=== PATIENT | male | born 1960 | race Asian ===

== ENCOUNTER 2023-08-20 16:21 | Inpatient (IN) | payer BC, OTHER ==
[2023-08-20 16:52] VITALS: BMI 57.6
[2023-08-20] MEDS ORDERED: SODIUM CHLORIDE 0.9% 500 ML INFUS.BAG IV ONE (17:39)
[2023-08-20] MEDS ORDERED: CEFTRIAXONE 1,000 MG in DEXTROSE 5%-WATER - 50 ML IVPB ONE (17:39)
[2023-08-20] MEDS ORDERED: CEFTRIAXONE 1 GM/50 ML BAG ONE (17:55)
[2023-08-20 18:03] LABS: HEMATOCRIT 40.7 % (35.4-49); HEMOGLOBIN 13.2 GM/dL (11.7-16.9); MCH 28.3 pg (25.7-33.7); MCHC 32.4 g/dl (32.0-35.9); MEAN CELL VOLUME 87.2 fl (80-96); MEAN PLT VOLUME 8.4 fl (7.5-11.1); PLATELET COUNT 421 10^3/uL (134-434); RBC 4.67 M/mm3 (4.00-5.60); RDW 13.8 % (11.9-15.9); WHITE BLOOD COUNT 22.1 K/mm3 (4.0-10.0)
[2023-08-20 18:08] LABS: INR 1.38 (0.83-1.09); PROTHROMBIN TIME (PATIENT) 15.9 SEC (9.7-13.0)
[2023-08-20 18:11] LABS: ACTIVATED PTT 32.3 SECONDS (25.2-36.5)
[2023-08-20 18:20] LABS: POTASSIUM 3.5 mmol/L (3.5-5.1)
[2023-08-20 18:22] LABS: CALCIUM 8.3 mg/dL (8.5-10.1)
[2023-08-20 18:23] LABS: BLOOD UREA NITROGEN 20.4 mg/dL (7-18)
[2023-08-20 18:26] LABS: CREATININE 1.2 mg/dL (0.55-1.3)
[2023-08-20 18:27] LABS: BILIRUBIN,TOTAL 0.8 mg/dL (0.2-1); TOT PROT 7.3 g/dl (6.4-8.2)
[2023-08-20 18:49] LABS: ANISOCYTOSIS 1+; MACROCYTOSIS 0
[2023-08-20] MEDS ORDERED: VANCOMYCIN PREMIX 1.75 GM 1,750 MG/350 ML PIGGYBACK IVPB ONE (20:44)
[2023-08-20] MEDS ORDERED: VANCOMYCIN 500 MG VIAL (RESTRICTED TO ID ONLY) ONE (20:48)
[2023-08-20] MEDS ORDERED: SENNOSIDES 8.6MG TABLET (FP) PO PRN (21:57)
[2023-08-20] MEDS ORDERED: DOCUSATE SODIUM 100 MG CAPSULE (FP) PO PRN (21:57)
[2023-08-20] MEDS: SODIUM CHLORIDE 1,000 ML IV SCH (23:21)
[2023-08-21] MEDS ORDERED: predniSONE 10 MG TABLET (UD) PO ONE (00:13)
[2023-08-21] MEDS ORDERED: predniSONE 10 MG TABLET (UD) ONE (01:03)
[2023-08-21] MEDS ORDERED: CLINDAMYCIN 600MG PREMIX IVPB 600 MG/50 ML BAG IVPB ONE (01:05)
[2023-08-21] MEDS ORDERED: ALBUTEROL SO4 HFA INHALER IH ONE (01:06)
[2023-08-21] MEDS: ALBUTEROL SO4 HFA INHALER IH SCH ×6 (01:18→21:08)
[2023-08-21] MEDS ORDERED: CLINDAMYCIN 600MG PREMIX IVPB 600 MG/50 ML BAG IVPB SCH (02:00)
[2023-08-21] MEDS ORDERED: LEVOTHYROXINE NA 75 MCG TABLET (FP) ONE (06:18)
[2023-08-21] MEDS: LEVOTHYROXINE NA 75 MCG TABLET (FP) PO SCH (06:20)
[2023-08-21 06:39] LABS: HEMATOCRIT 34.1 % (35.4-49); HEMOGLOBIN 11.1 GM/dL (11.7-16.9); MCH 28.5 pg (25.7-33.7); MCHC 32.7 g/dl (32.0-35.9); MEAN CELL VOLUME 87.3 fl (80-96); MEAN PLT VOLUME 7.7 fl (7.5-11.1); PLATELET COUNT 289 10^3/uL (134-434); RDW 13.7 % (11.9-15.9); WHITE BLOOD COUNT 19.4 K/mm3 (4.0-10.0)
[2023-08-21 06:48] LABS: INR 1.51 (0.83-1.09); PROTHROMBIN TIME (PATIENT) 17.4 SEC (9.7-13.0)
[2023-08-21 06:51] LABS: ACTIVATED PTT 29.2 SECONDS (25.2-36.5)
[2023-08-21] MEDS: INSULIN ASPART SLIDING SCALE (NOVOLOG) 1 VIAL SQ SCH ×3 (06:51→16:26)
[2023-08-21 06:56] LABS: POTASSIUM 3.6 mmol/L (3.5-5.1)
[2023-08-21 07:01] LABS: CALCIUM 7.7 mg/dL (8.5-10.1)
[2023-08-21 07:04] LABS: CREATININE 0.9 mg/dL (0.55-1.3)
[2023-08-21 07:06] LABS: BILIRUBIN,TOTAL 0.6 mg/dL (0.2-1); TOT PROT 5.6 g/dl (6.4-8.2)
[2023-08-21 07:12] LABS: ALBUMIN 2.2 g/dl (3.4-5.0)
[2023-08-21] MEDS ORDERED: ACETAMINOPHEN 1000 MG/100 ML BAG IVPB PRN (08:25)
[2023-08-21] MEDS: LOSARTAN POTASSIUM 50 MG TABLET PO SCH (09:34)
[2023-08-21] MEDS: FENOFIBRIC ACID 135 MG CAP PO SCH (09:34)
[2023-08-21] MEDS: NEBIVOLOL 2.5 MG TABLET (FP) PO SCH (10:53)
[2023-08-21 12:26] LABS: URINE APPEARANCE CLEAR; URINE BILIRUBIN NEGATIVE (NEGATIVE); URINE COLOR YELLOW; URINE GLUCOSE (UA) NEGATIVE (NEGATIVE); URINE KETONE NEGATIVE (NEGATIVE); URINE LEUK ESTERASE NEGATIVE (NEGATIVE); URINE NITRITE NEGATIVE (NEGATIVE); URINE PROTEIN TRACE (NEGATIVE)
[2023-08-21] MEDS: PIPERACILLIN/TAZOB 4.5 GM 4.5 GM in DEXTROSE 5%-WATER 100 ML IVPB SCH ×2 (13:04→17:37)
[2023-08-21] MEDS ORDERED: PIPERACILLIN/TAZOB 4.5 GM 4.5 GM/100 ML BAG IVPB ONE ×2 (13:04→16:32)
[2023-08-21] MEDS: SODIUM CHLORIDE 1,000 ML IV SCH (21:08)
[2023-08-21] MEDS ORDERED: ACETAMINOPHEN 325 MG TABLET (FP) ONE (21:26)
[2023-08-21] MEDS ORDERED: ACETAMINOPHEN 500 MG TABLET (FP) PO ONE (21:38)
[2023-08-22] MEDS ORDERED: cefOXitin SODIUM 1 GM VIAL (RESTRICTED TO ID) IVPB ONE
[2023-08-22] MEDS ORDERED: ALBUTEROL SO4 HFA INHALER IH ONE ×2 (00:48→11:59)
[2023-08-22] MEDS ORDERED: PIPERACILLIN/TAZOB 4.5 GM 4.5 GM/100 ML BAG IVPB ONE (00:52)
[2023-08-22] MEDS: ALBUTEROL SO4 HFA INHALER IH SCH ×7 (01:04→23:18)
[2023-08-22] MEDS: PIPERACILLIN/TAZOB 4.5 GM 4.5 GM in DEXTROSE 5%-WATER 100 ML IVPB SCH ×3 (01:24→19:52)
[2023-08-22 08:29] LABS: HEMATOCRIT 38.3 % (35.4-49); HEMOGLOBIN 12.8 GM/dL (11.7-16.9); MCH 29.1 pg (25.7-33.7); MCHC 33.5 g/dl (32.0-35.9); MEAN CELL VOLUME 86.9 fl (80-96); MEAN PLT VOLUME 7.7 fl (7.5-11.1); PLATELET COUNT 376 10^3/uL (134-434); RBC 4.41 M/mm3 (4.00-5.60); RDW 13.5 % (11.9-15.9); WHITE BLOOD COUNT 21.9 K/mm3 (4.0-10.0)
[2023-08-22] MEDS: LEVOTHYROXINE NA 75 MCG TABLET (FP) PO SCH (08:45)
[2023-08-22 08:48] LABS: POTASSIUM 3.6 mmol/L (3.5-5.1)
[2023-08-22] MEDS: INSULIN ASPART SLIDING SCALE (NOVOLOG) 1 VIAL SQ SCH ×3 (08:51→19:53)
[2023-08-22] MEDS ORDERED: LEVOTHYROXINE NA 75 MCG TABLET (FP) ONE (08:53)
[2023-08-22 08:58] LABS: ALBUMIN 2.4 g/dl (3.4-5.0); BLOOD UREA NITROGEN 16.8 mg/dL (7-18); CALCIUM 8.1 mg/dL (8.5-10.1)
[2023-08-22 09:00] LABS: BILIRUBIN,TOTAL 0.7 mg/dL (0.2-1); TOT PROT 6.5 g/dl (6.4-8.2)
[2023-08-22 09:39] LABS: ANISOCYTOSIS 0; HELMET CELLS 0; HOWELL-JOLLY BODIES 0; MACROCYTOSIS 0; OVALOCYTE 0; ROULEAU 0; SICKELED CELLS 0; TARGET CELLS 0; TEAR DROP CELLS 0; TOXIC GRANULATION 0
[2023-08-22] MEDS ORDERED: predniSONE 5 MG TABLET (UD) PO ONE ×2 (10:00→13:55)
[2023-08-22] MEDS ORDERED: cefOXitin SODIUM 2 GM VIAL (RESTRICTED TO ID) IVPB ONE (10:45)
[2023-08-22] MEDS ORDERED: BUPIVACAINE HCL/PF 0.25% (2.5MG/ML) 10 ML VIAL ONE (10:46)
[2023-08-22] MEDS ORDERED: MIDAZOLAM HCL 2 MG/2 ML SINGLE DOSE VIAL ONE (11:49)
[2023-08-22] MEDS ORDERED: FENTANYL CITRATE/PF 50 MCG/ML VIAL ONE ×2 (11:49→12:30)
[2023-08-22] MEDS ORDERED: AMPICILLIN SODIUM 2 GM VIAL ONE (11:59)
[2023-08-22] MEDS ORDERED: SUCCINYLCHOLINE CHLORIDE 200 MG/10 ML SYRINGE ONE (12:27)
[2023-08-22] MEDS ORDERED: BUPIVACAINE HCL/PF 0.25% (2.5MG/ML) 10 ML VIAL IJ ONE (12:35)
[2023-08-22] MEDS ORDERED: HYDROmorphone HCl 2 MG/ML VIAL ONE (12:38)
[2023-08-22] MEDS ORDERED: ONDANSETRON 4 MG/2 ML VIAL IVPUSH PRN ×2 (13:05→13:55)
[2023-08-22] MEDS ORDERED: LACTATED RINGERS SOLUTION 1,000 ML IV SCH (13:15)
[2023-08-22] MEDS ORDERED: DOCUSATE SODIUM 100 MG CAPSULE (FP) PO PRN (13:55)
[2023-08-22] MEDS ORDERED: SENNOSIDES 8.6MG TABLET (FP) PO PRN (13:55)
[2023-08-22] MEDS: LACTATED RINGERS SOLUTION 1,000 ML IV SCH (15:37)
[2023-08-22] MEDS: NEBIVOLOL 2.5 MG TABLET (FP) PO SCH (19:50)
[2023-08-22] MEDS: FENOFIBRIC ACID 135 MG CAP PO SCH (19:51)
[2023-08-22] MEDS: LOSARTAN POTASSIUM 50 MG TABLET PO SCH (19:51)
[2023-08-23] MEDS: PIPERACILLIN/TAZOB 4.5 GM 4.5 GM in DEXTROSE 5%-WATER 100 ML IVPB SCH ×3 (01:34→17:37)
[2023-08-23] MEDS: LACTATED RINGERS SOLUTION 1,000 ML IV SCH (04:18)
[2023-08-23] MEDS: ALBUTEROL SO4 HFA INHALER IH SCH ×5 (04:23→20:44)
[2023-08-23] MEDS: LEVOTHYROXINE NA 75 MCG TABLET (FP) PO SCH (06:22)
[2023-08-23] MEDS: INSULIN ASPART SLIDING SCALE (NOVOLOG) 1 VIAL SQ SCH ×3 (06:38→17:43)
[2023-08-23 08:09] LABS: BASO % 0.4 % (0-2.0); EOS % 1.3 % (0-4.5); HEMATOCRIT 30.6 % (35.4-49); HEMOGLOBIN 10.5 GM/dL (11.7-16.9); LYMPH % 12.1 % (8-40); MCH 29.3 pg (25.7-33.7); MCHC 34.2 g/dl (32.0-35.9); MEAN CELL VOLUME 85.5 fl (80-96); MEAN PLT VOLUME 7.3 fl (7.5-11.1); MONO % 7.2 % (3.8-10.2); PLATELET COUNT 272 10^3/uL (134-434); RBC 3.58 M/mm3 (4.00-5.60); RDW 13.5 % (11.9-15.9); WHITE BLOOD COUNT 12.1 K/mm3 (4.0-10.0)
[2023-08-23 08:26] LABS: POTASSIUM 3.3 mmol/L (3.5-5.1)
[2023-08-23 08:34] LABS: ALBUMIN 1.9 g/dl (3.4-5.0)
[2023-08-23 08:36] LABS: BILIRUBIN,TOTAL 0.5 mg/dL (0.2-1); BLOOD UREA NITROGEN 14.9 mg/dL (7-18); CALCIUM 7.6 mg/dL (8.5-10.1)
[2023-08-23 08:37] LABS: CREATININE 0.8 mg/dL (0.55-1.3)
[2023-08-23] MEDS: LOSARTAN POTASSIUM 50 MG TABLET PO SCH (11:18)
[2023-08-23] MEDS: FENOFIBRIC ACID 135 MG CAP PO SCH (11:18)
[2023-08-23] MEDS: NEBIVOLOL 5 MG TABLET (FP) PO SCH (11:19)
[2023-08-23] MEDS ORDERED: oxyCODONE HCL 5 MG TABLET PO PRN (15:57)
[2023-08-24] MEDS: ALBUTEROL SO4 HFA INHALER IH SCH ×6 (00:52→20:06)
[2023-08-24] MEDS: PIPERACILLIN/TAZOB 4.5 GM 4.5 GM in DEXTROSE 5%-WATER 100 ML IVPB SCH ×3 (02:47→17:13)
[2023-08-24] MEDS: LEVOTHYROXINE NA 75 MCG TABLET (FP) PO SCH (06:49)
[2023-08-24] MEDS: INSULIN ASPART SLIDING SCALE (NOVOLOG) 1 VIAL SQ SCH ×3 (06:50→16:35)
[2023-08-24] MEDS: NEBIVOLOL 5 MG TABLET (FP) PO SCH (09:17)
[2023-08-24] MEDS: LOSARTAN POTASSIUM 50 MG TABLET PO SCH (09:17)
[2023-08-24] MEDS: FENOFIBRIC ACID 135 MG CAP PO SCH (09:18)
[2023-08-24 09:26] LABS: BASO % 0.9 % (0-2.0); EOS % 3.6 % (0-4.5); HEMATOCRIT 37.2 % (35.4-49); HEMOGLOBIN 12.6 GM/dL (11.7-16.9); LYMPH % 21.9 % (8-40); MCH 28.8 pg (25.7-33.7); MCHC 33.8 g/dl (32.0-35.9); MEAN CELL VOLUME 85.3 fl (80-96); MEAN PLT VOLUME 7.3 fl (7.5-11.1); MONO % 6.9 % (3.8-10.2); NEUT % 66.7 % (42.8-82.8); PLATELET COUNT 461 10^3/uL (134-434); RBC 4.36 M/mm3 (4.00-5.60); RDW 13.9 % (11.9-15.9); WHITE BLOOD COUNT 11.3 K/mm3 (4.0-10.0)
[2023-08-24 09:57] LABS: POTASSIUM 3.8 mmol/L (3.5-5.1)
[2023-08-24 09:59] LABS: CALCIUM 8.3 mg/dL (8.5-10.1)
[2023-08-24 10:00] LABS: BLOOD UREA NITROGEN 11.8 mg/dL (7-18); MAGNESIUM 2.1 mg/dL (1.8-2.4)
[2023-08-24 10:04] LABS: BILIRUBIN,TOTAL 0.4 mg/dL (0.2-1); TOT PROT 6.3 g/dl (6.4-8.2)
[2023-08-24 10:27] LABS: ALBUMIN 2.3 g/dl (3.4-5.0)
[2023-08-25] MEDS: ALBUTEROL SO4 HFA INHALER IH SCH ×6 (00:12→21:01)
[2023-08-25] MEDS: PIPERACILLIN/TAZOB 4.5 GM 4.5 GM in DEXTROSE 5%-WATER 100 ML IVPB SCH ×3 (01:17→18:04)
[2023-08-25] MEDS: LEVOTHYROXINE NA 75 MCG TABLET (FP) PO SCH (06:17)
[2023-08-25] MEDS: INSULIN ASPART SLIDING SCALE (NOVOLOG) 1 VIAL SQ SCH ×3 (06:22→18:04)
[2023-08-25 09:40] LABS: POTASSIUM 3.6 mmol/L (3.5-5.1)
[2023-08-25 09:44] LABS: ALBUMIN 2.2 g/dl (3.4-5.0); BLOOD UREA NITROGEN 13.2 mg/dL (7-18); CALCIUM 7.6 mg/dL (8.5-10.1); HEMATOCRIT 34.2 % (35.4-49); HEMOGLOBIN 11.1 GM/dL (11.7-16.9); MCH 28.1 pg (25.7-33.7); MCHC 32.3 g/dl (32.0-35.9); MEAN PLT VOLUME 7.4 fl (7.5-11.1); PLATELET COUNT 387 10^3/uL (134-434); RBC 3.93 M/mm3 (4.00-5.60); RDW 13.5 % (11.9-15.9); WHITE BLOOD COUNT 9.7 K/mm3 (4.0-10.0)
[2023-08-25 09:45] LABS: MAGNESIUM 1.8 mg/dL (1.8-2.4)
[2023-08-25 09:47] LABS: CREATININE 0.9 mg/dL (0.55-1.3)
[2023-08-25] MEDS: LOSARTAN POTASSIUM 50 MG TABLET PO SCH (09:47)
[2023-08-25] MEDS: NEBIVOLOL 5 MG TABLET (FP) PO SCH (09:47)
[2023-08-25] MEDS: FENOFIBRIC ACID 135 MG CAP PO SCH (09:47)
[2023-08-25 09:49] LABS: BILIRUBIN,TOTAL 0.4 mg/dL (0.2-1); TOT PROT 5.7 g/dl (6.4-8.2)
[2023-08-25 10:28] LABS: ANISOCYTOSIS 0; MACROCYTOSIS 0
[2023-08-25 16:02] VITALS: RESP 18
[2023-08-26] MEDS: ALBUTEROL SO4 HFA INHALER IH SCH ×5 (00:04→16:00)
[2023-08-26] MEDS: PIPERACILLIN/TAZOB 4.5 GM 4.5 GM in DEXTROSE 5%-WATER 100 ML IVPB SCH ×2 (01:26→11:18)
[2023-08-26] MEDS: LEVOTHYROXINE NA 75 MCG TABLET (FP) PO SCH (06:21)
[2023-08-26] MEDS: INSULIN ASPART SLIDING SCALE (NOVOLOG) 1 VIAL SQ SCH ×2 (06:26→11:55)
[2023-08-26 08:29] LABS: HEMATOCRIT 34.2 % (35.4-49); HEMOGLOBIN 11.2 GM/dL (11.7-16.9); MCH 28.6 pg (25.7-33.7); MCHC 32.7 g/dl (32.0-35.9); MEAN CELL VOLUME 87.4 fl (80-96); MEAN PLT VOLUME 7.4 fl (7.5-11.1); PLATELET COUNT 411 10^3/uL (134-434); RBC 3.91 M/mm3 (4.00-5.60); RDW 13.8 % (11.9-15.9); WHITE BLOOD COUNT 10.6 K/mm3 (4.0-10.0)
[2023-08-26 09:11] LABS: POTASSIUM 3.7 mmol/L (3.5-5.1)
[2023-08-26 09:14] LABS: CALCIUM 7.9 mg/dL (8.5-10.1)
[2023-08-26 09:15] LABS: ALBUMIN 2.2 g/dl (3.4-5.0); BLOOD UREA NITROGEN 18.6 mg/dL (7-18)
[2023-08-26 09:17] LABS: CREATININE 0.9 mg/dL (0.55-1.3)
[2023-08-26 09:19] LABS: BILIRUBIN,TOTAL 0.5 mg/dL (0.2-1); TOT PROT 5.7 g/dl (6.4-8.2)
[2023-08-26] MEDS ORDERED: ENOXAPARIN NA (PORCINE) 40 MG/0.4 ML DISP.SYRIN SQ SCH (10:00)
[2023-08-26 10:12] LABS: ANISOCYTOSIS 1+; MACROCYTOSIS 0
[2023-08-26] MEDS: LOSARTAN POTASSIUM 50 MG TABLET PO SCH (10:57)
[2023-08-26] MEDS: FENOFIBRIC ACID 135 MG CAP PO SCH (10:57)
[2023-08-26] MEDS: NEBIVOLOL 5 MG TABLET (FP) PO SCH (10:58)
[2023-08-26 11:36] VITALS: TEMP 98.3
[2023-08-26 14:30] VITALS: BP 141/63; PULSE 82
== END 2023-08-26 16:08 | disposition home or self-care (01) | DRG 853 ==
LOC: JER 16:21 → JERBED 22:05 → J8W 08-22 18:14
PROVIDERS: ADMIT Internal Medicine; ATTEND Nurse Practitioner Family
PROC: 0D9P0ZX Drainage of Rectum, Open Approach, Diagnostic (ICD-10-PCS; principal; 2023-08-22 09:30)
DX: A41.89 Other specified sepsis (principal); U07.1 COVID-19; K61.1 Rectal abscess; I10 Essential (primary) hypertension; E03.9 Hypothyroidism, unspecified; D72.829 Elevated white blood cell count, unspecified; E11.65 Type 2 diabetes mellitus with hyperglycemia; B96.20 Unspecified Escherichia coli [E. coli] as the cause of diseases classified elsewhere; B96.1 Klebsiella pneumoniae [K. pneumoniae] as the cause of diseases classified elsewhere; B95.4 Other streptococcus as the cause of diseases classified elsewhere
CPT/HCPCS: 0241U-QW; 36415; 72193-TC; 80053; 81003; 82962; 83036; 83735; 85025; 85027; 85610; 85730; 86850; 86900; 86901; 87040; 87070; 87076; 87186; 87205; 93005; 93010; 94760; 99285-25; J3370; Q9967

== ENCOUNTER 2024-05-16 05:16 | Day surgery (SDC) | payer OTHER ==
[2024-05-14 14:43] VITALS: BMI 28.2
[2024-05-16 09:42] VITALS: TEMP 98.7
[2024-05-16 10:11] VITALS: RESP 18
[2024-05-16 10:12] VITALS: BP 136/72; PULSE 63
== END 2024-05-16 10:15 | disposition home or self-care (01) ==
LOC: JASU-ENDO 05:16
PROVIDERS: ATTEND Internal Medicine Gastroenterology
PROC: 0DBP8ZX Excision of Rectum, Via Natural or Artificial Opening Endoscopic, Diagnostic (ICD-10-PCS; principal; 2024-05-16 09:00)
DX: Z12.11 Encounter for screening for malignant neoplasm of colon (principal); D12.8 Benign neoplasm of rectum; K64.8 Other hemorrhoids; K57.30 Diverticulosis of large intestine without perforation or abscess without bleeding; Z86.010 Personal history of colon polyps
CPT/HCPCS: 88305-TC